=== PATIENT | male | born 1980 | race African-American/Black ===

== ENCOUNTER → 2019-05-26 | Outpatient (CLI) | payer BC ==
[2019-05-26 21:56] LABS: HIV 1/2 Antibodies Non-Reactive; HIV-1p24 Antigen Non-Reactive
[2019-05-27 15:31] LABS: HEPATITIS B SURFACE ANTIBODY <2.0 (()); HEPATITIS B SURFACE ANTIGEN Negative (Negative); HEPATITIS C VIRUS ANTIBODY Negative (Negative)
== END ==
LOC: ZCOL.LAB 17:48
PROVIDERS: Family Medicine
DX: Z11.3 Encounter for screening for infections with a predominantly sexual mode of transmission (principal); Z78.9 Other specified health status; R63.5 Abnormal weight gain